=== PATIENT | male | born 1955 | race Caucasian/White ===

== ENCOUNTER → 2022-06-18 12:51 | Outpatient (CLI) | payer OTHER, SELFPAY ==
--- NOTE | ~2022-06-18 | XR_ITS ---
Left Shoulder Technique: AP and axillary views were obtained. Clinical History: Injury Findings: No fracture or dislocation is seen. Osseous alignment is anatomic. The glenohumeral and acr omioclavicular joint spaces are preserved. Soft tissues are unremarkable. Impression: Unremarkable left shoulder radiographs. Reviewed, dictated and finalized at [facility]. Impression: Unremarkable left shoulder radiographs.
== END ==
PROVIDERS: PCP Pediatrics; Visit Provider Nurse Practitioner Family
DX: M54.42 Lumbago with sciatica, left side (principal); M25.512 Pain in left shoulder; I48.91 Unspecified atrial fibrillation
CPT/HCPCS: 73030

== ENCOUNTER → 2022-07-03 13:36 | Outpatient (CLI) | payer OTHER, SELFPAY ==
--- NOTE | ~2022-07-03 | MR_ITS ---
MRI of the left shoulder Technique: Axial proton-density fat-sat images, coronal proton density fat-sat and T2 fat-sat images, and sagittal T1-weighted and T2 fat-sat images were acquired. Clinical History: Pain Findings: There is mild AC joint degenerative change. Coracoclavicular, coracoacromial, and coracohum eral ligaments are intact. There is a full-thickness tear involving the majority of the supraspinatus tendon, possibly sparing t he posterior most fibers. Fluid-filled gap measures 3.1 x 2.7 cm in extent. Infraspinatus tendon is i ntact. Subscapularis tendon is intact. Tendon of the long head of the biceps is intact. No definite labral tear identified. Inferior glenohumeral ligament is intact. There is minimal glenohumeral joint effusion with fluid pas sing through the rotator cuff defect into the subacromial/subdeltoid bursa. No degenerative change of the glenohumeral joint. No muscle atrophy or edema. Impression: Complete, full-thickness tear involving nearly entire supraspinatus tendon, as detailed above. Reviewed, dictated and finalized at location . Impression: Complete, full-thickness tear involving nearly entire supraspinatus tendon, as detailed above.
== END ==
PROVIDERS: PCP Pediatrics; Visit Provider Pediatrics
DX: S46.812A Strain of other muscles, fascia and tendons at shoulder and upper arm level, left arm, initial encounter (principal); X58.XXXA Exposure to other specified factors, initial encounter
CPT/HCPCS: 73221

== ENCOUNTER 2023-10-07 13:53 | Outpatient (CLI) | payer MEDICARE, SELFPAY ==
--- NOTE | ~2023-10-07 | XR_ITS ---
XR sacroiliac joints min 3V Ordering provider: Primitivo Valenzuela MD History: . no injury left side lbp . Comparison: None. FINDINGS: BONES: No acute fracture or dislocation. JOINTS: Sclerotic changes on the iliac side suggestive of sacroiliitis in the left side.. Facet join t disease at the level of L4-L5 and L5-S1. SOFT TISSUES: Unremarkable. IMPRESSION: NO ACUTE OSSEOUS ABNORMALITY. SCLEROTIC CHANGES IN THE LEFT SIDE OF THE LEFT SACROILIAC JOINT. CT zuhair luation is advised. Reviewed, dictated and finalized at location A. IMPRESSION: NO ACUTE OSSEOUS ABNORMALITY. SCLEROTIC CHANGES IN THE LEFT SIDE OF THE LEFT SA CROILIAC JOINT. CT evaluation is advised.
--- NOTE | ~2023-10-07 | XR_ITS ---
3 VIEWS LUMBAR SPINE Ordering provider: Primitivo Valenzuela MD History: . no injury left side lbp . Comparison: None. FINDINGS: VERTEBRAL BODIES: No visible fracture or subluxation. Degenerative changes of the spine. DISK SPACES: Narrowing of the disc L1-L2, L2-L3 and L5-S1. Multilevel facet joint disease. Left sacroiliitis. SOFT TISSUES: Normal. IMPRESSION: No acute osseous abnormality lumbar spine. Multilevel degenerative disc disease. Left sacroiliitis. Reviewed, dictated and finalized at location A.
== END 2023-10-07 13:54 ==
PROVIDERS: PCP Pediatrics; Visit Provider Pediatrics
DX: M53.3 Sacrococcygeal disorders, not elsewhere classified (principal); M54.42 Lumbago with sciatica, left side; M51.36 Other intervertebral disc degeneration, lumbar region
CPT/HCPCS: 72100; 72202

== ENCOUNTER 2023-10-30 10:19 | Outpatient (CLI) | payer MEDICARE, SELFPAY ==
--- NOTE | ~2023-10-30 | CT_ITS ---
EXAMINATION: CT pelvis wo con DATE: 10/30/2023 10:35 INDICATION: Sclerotic changes along the lateral margin of the left sacroiliac joint with prior study. TECHNIQUE: High resolution computed tomography (CT) of the pelvis was performed without intravenous c ontrast. Additional sagittal and coronal reconstructions were performed. Automated exposure control a nd iterative reconstruction technique were employed. The dose-length product was 582.60 mGy-cm. COMPARISON: 10/07/2023 FINDINGS: Bone alignment is normal. No fracture. The sclerosis evident on prior radiographs corresponds to a re gion of multiple subarticular lucencies with thin sclerotic margins in the left innominate bone exten ding along the majority of the left sacral iliac joint. There appears be a defect in the articular co rtex underlying one of the larger lucent regions. There is moderate osteoarthritis at the bilateral s acralized joints. Mild bilateral hip osteoarthritis. Moderate osteitis pubis with subarticular erosions versus cystic change along both sides of the pubic symphysis. Lower lumbar spondylosis with mild disc height loss at L4-L5 and severe bilateral facet o steoarthritis at L4-5 and L5-S1. There is mild sigmoid diverticulosis without adjacent comparison to suggest diverticulitis. The visualized small bowel and appendix are normal. Bladder is normal. Very s mall fat-containing left inguinal hernia. No pathologically enlarged pelvic or inguinal lymphadenopat hy. Partially visualized small left varicocele. IMPRESSION: 1. Moderate bilateral sacral iliac osteoarthritis with numerous subarticular lucencies with sclerotic margins along the iliac side of the left sacroiliac joint suggesting either degenerative subarticula r cystic changes or sequela of chronic sacroiliitis. Reviewed, dictated and finalized at location B. IMPRESSION: 1. 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
== END 2023-10-30 10:20 | disposition home or self-care (01) ==
LOC: MICIMG 10:21
PROVIDERS: PCP Pediatrics; Visit Provider Pediatrics
DX: M47.818 Spondylosis without myelopathy or radiculopathy, sacral and sacrococcygeal region (principal)
CPT/HCPCS: 72192